=== PATIENT | male | born 1950 | race Caucasian/White ===

== ENCOUNTER 2017-07-06 20:23 | Emergency (ER) | payer MEDICARE, OTHER, SELFPAY ==
[2017-07-06] MEDS ORDERED: traMADol HCl 50 MG TAB ONE (20:43)
[2017-07-06] MEDS ORDERED: Triple Antibiotic Oint 1 GM Packet ONE (20:44)
[2017-07-06] MEDS ORDERED: Ibuprofen 800 MG TAB ONE (20:44)
[2017-07-06] MEDS ORDERED: Sulfameth/Trimethoprim DS 800-160mg TAB ONE (20:44)
== END 2017-07-06 21:02 | disposition home or self-care (01) ==
LOC: BURERS 20:23
DX: L03.115 Cellulitis of right lower limb (principal)
CPT/HCPCS: 99283